=== PATIENT | female | born 1980 | race Hispanic/Latino ===

== ENCOUNTER 2018-03-03 03:34 | Emergency (ER) | payer BC, SELFPAY ==
[2018-03-03 04:19] LABS: Bilirubin Small (Negative); Blood, Urine Moderate (Negative); Clarity TURBID (Clear); Glucose, Urine (Dipstick) >=1000 mg/dL (Negative); Leukocyte Large (Negative); Nitrite Positive (Negative); Protein, Urine (Dipstick) 30 mg/dL (Neg-Trace); Specific Gravity, Urine 1.037 (1.002-1.036)
[2018-03-03 04:22] LABS: Bacteria/HPF None Seen HPF (None Seen); Hyaline Casts/LPF 4-6 HYALINE CAST LPF (0-3 Hyaline); Pathc Cast-AUWi Flag 1.34 (0-2.49)
[2018-03-03 04:30] LABS: Yeast-AUWi Flag 133.8 (0-25.0)
[2018-03-03 04:32] LABS: Pregnancy Test - Urine (BHCG) Negative (Negative); Pregu Control Background? CLEAR/WHITE (CLR/WHITE); Pregu Control Bar Appear? YES (CONTROL BAR); Specific Gravity 1.037 (1.002-1.036)
[2018-03-03 04:35] LABS: #Basophils 0.1 thou/uL (0.0-0.2); #Eosinphils 0.2 thou/uL (0.0-0.7); #Lymphocytes 3.3 thou/uL (1.20-3.40); #Monocytes 0.5 thou/uL (0.11-0.59); #Neutrophils 3.1 thou/uL (1.40-6.50); %Basophils 0.8 % (0.0-1.0); %Eosinophils 3.1 % (0.0-10.0); %Lymphocytes 45.5 % (21.0-51.0); %Monocytes 7.2 % (0.0-10.0); %Neutrophils 43.4 % (42.0-75.0); Mean Corpuscular HGB CONC 33.7 g/dL (32.0-36.0); Mean Corpuscular Volume 86.3 fL (78.0-98.0); Mean Platelet Volume 7.9 fL (7.4-10.4); Platelet Count 299 thou/uL (130-400); RBC Distribution Width 12.2 % (11.5-14.5); Red Blood Cell (RBC) Count 5.15 mill/uL (4.20-5.40); White Blood Cell (WBC) Count 7.2 thou/uL (4.8-10.8)
[2018-03-03 04:40] LABS: ALT (SGPT) 190 U/L (8-55); AST (SGOT) 97 U/L (5-34); Albumin 4.1 g/dL (3.5-5.0); Alkaline Phosphatase 109 U/L (40-150); Anion Gap 15 mmol/L (10-20); BUN (Urea Nitrogen) 11 mg/dL (7.0-18.7); Bilirubin, Total 0.8 mg/dL (0.2-1.2); Calc. Creatinine Clearance 0 mL/min (70-130); Calcium 9.2 mg/dL (7.8-10.44); Carbon Dioxide 20 mmol/L (22-29); Chloride 105 mmol/L (98-107); Estimated GFR-MDRD 67; Globulin 3.8 g/dL (2.4-3.5); Glucose 310 mg/dL (70-105); Potassium 3.6 mmol/L (3.5-5.1); Protein, Total 7.9 g/dL (6.0-8.3); Sodium 136 mmol/L (136-145)
[2018-03-03 04:50] LABS: RBC/HPF GREATER THAN 50-TNTC HPF (0-3); Yeast-All Forms None Seen HPF (None Seen)
[2018-03-03] MEDS ORDERED: cefTRIAXone\\ROCEPHIN 1 GM VIAL ONE (06:08)
[2018-03-03] MEDS ORDERED: Lidocaine 1% PF 5 ML VIAL ONE (06:09)
[2018-03-04 22:37] LABS: Chlamydia by PCR Not Detected (NotDetected); GC by PCR Not Detected (NotDetected)
== END 2018-03-03 07:08 | disposition home or self-care (01) ==
LOC: ERS 03:34
DX: N39.0 Urinary tract infection, site not specified (principal)
CPT/HCPCS: 36415; 80053; 81003; 81015; 81025; 85025; 87480; 87491; 87510; 87591; 87660; 96372; J0696; J2001

== ENCOUNTER 2019-02-23 07:58 | Emergency (ER) | payer SELFPAY ==
[2019-02-23] MEDS ORDERED: Ketorolac Tromethamine 30 MG/ML VIAL ONE (08:35)
== END 2019-02-23 08:50 | disposition home or self-care (01) ==
LOC: ERS 07:58
DX: S39.012A Strain of muscle, fascia and tendon of lower back, initial encounter (principal); X50.9XXA Other and unspecified overexertion or strenuous movements or postures, initial encounter
CPT/HCPCS: 96372; 99283; J1885

== ENCOUNTER 2019-04-15 18:11 | Emergency (ER) | payer SELFPAY ==
[2019-04-15] MEDS ORDERED: Midazolam HCl 2 mg/2 ml Vial ONE (20:52)
[2019-04-15] MEDS ORDERED: Ketorolac Tromethamine 30 MG/ML VIAL ONE (20:52)
[2019-04-15] MEDS ORDERED: Fentanyl 100 MCG/2 ML VIAL ONE ×2 (20:52→21:41)
== END 2019-04-15 22:22 | disposition home or self-care (01) ==
LOC: ERS 18:11
DX: L02.31 Cutaneous abscess of buttock (principal)
CPT/HCPCS: 10061; 96374; 96375; 96376; J1885; J2250; J3010

== ENCOUNTER 2019-04-18 12:32 | Emergency (ER) | payer SELFPAY ==
[2019-04-18] MEDS ORDERED: Bacitracin 1 PK ONE (13:19)
== END 2019-04-18 13:35 | disposition home or self-care (01) ==
LOC: ERS 12:32
DX: Z48.817 Encounter for surgical aftercare following surgery on the skin and subcutaneous tissue (principal)
CPT/HCPCS: 99282

== ENCOUNTER 2019-12-26 13:44 | Emergency (ER) | payer BC, OTHER ==
[2019-12-27 15:38] LABS: SARS-CoV-2 MS2 Positive; SARS-CoV-2 N Gene Negative; SARS-CoV-2 S Gene Negative; SARS-CoV-2 orf1ab Negative
== END 2019-12-26 14:26 | disposition home or self-care (01) ==
LOC: ERS 13:44
DX: Z20.828 Contact with and (suspected) exposure to other viral communicable diseases (principal); E11.9 Type 2 diabetes mellitus without complications
CPT/HCPCS: 87635; 99283; U0003

== ENCOUNTER 2020-01-18 14:16 | Emergency (ER) | payer BC, OTHER ==
[~2020-01-18 14:16] MED LIST: Iopamidol-370 76% 500 ML 1 ML ONE
[2020-01-18 16:41] LABS: #Lymphocytes 1.9 thou/uL (1.20-3.40); #Monocytes 0.5 thou/uL (0.11-0.59); #Neutrophils 7.2 thou/uL (1.40-6.50); %Basophils 0.3 % (0.0-1.0); %Eosinophils 0.2 % (0.0-10.0); %Lymphocytes 19.5 % (21.0-51.0); %Monocytes 4.9 % (0.0-10.0); Hemoglobin 10.8 g/dL (12.0-16.0); Mean Corpuscular HGB CONC 29.5 g/dL (32.0-36.0); Mean Corpuscular Hemoglobin 18.7 pg (27.0-31.0); Mean Corpuscular Volume 63.4 fL (78.0-98.0); Mean Platelet Volume 5.4 fL (7.4-10.4); Platelet Count 399 thou/uL (130-400); RBC Distribution Width 17.6 % (11.5-14.5); White Blood Cell (WBC) Count 9.7 thou/uL (4.8-10.8)
[2020-01-18 16:47] LABS: BHCG - Serum Negative (NEGATIVE); Pregs Control Background? CLEAR/WHITE (CLR/WHITE); Pregs Control Bar Appear? YES (CONTROL BAR)
--- NOTE | 2020-01-18 16:58 | RAD ---
XR Chest 1 View Portable HISTORY: Shortness of breath COMPARISON: None FINDINGS: The heart size is normal. Patchy infiltrate is seen in the right lung base. No pneumothorax or pleural effusions. IMPRESSION: Findings suspicious for right basilar pneumonia.
[2020-01-18 17:01] LABS: ALT (SGPT) 40 U/L (8-55); AST (SGOT) 37 U/L (5-34); Albumin 4.2 g/dL (3.5-5.0); Alkaline Phosphatase 95 U/L (40-110); Anion Gap 14 mmol/L (10-20); BUN (Urea Nitrogen) 9 mg/dL (7.0-18.7); Bilirubin, Total 0.3 mg/dL (0.2-1.2); Calc. Creatinine Clearance 0 mL/min (70-130); Calcium 9.1 mg/dL (7.8-10.44); Carbon Dioxide 22 mmol/L (22-29); Chloride 101 mmol/L (98-107); Estimated GFR-MDRD 75; Globulin 4.3 g/dL (2.4-3.5); Glucose 219 mg/dL (70-105); Lipase 29 U/L (8-78); Potassium 3.9 mmol/L (3.5-5.1); Protein, Total 8.5 g/dL (6.0-8.3); Sodium 133 mmol/L (136-145)
[2020-01-18 17:14] LABS: Reflex for Review?? YES
[2020-01-18 17:44] LABS: Anisocytosis SLIGHT = 6-15 cells (100X) (0-5/hpf); Band 2 % (5-11); Eosinophils 1 % (0-10); Hypochromia MODERATE=16-30 cells (100X) (0-5/hpf); Lymphocytes 21 % (21-51); MDiff Complete? YES; Microcytosis MODERATE=15-30 cells (100X) (0-5/hpf); Monocytes 5 % (0-10); Neutrophil 71 % (42-75); Platelet Morphology Comment Appears Adequate; Polychromasia SLIGHT = 2-3 cells (100X) (0-2/hpf)
[2020-01-18] MEDS ORDERED: cefTRIAXone\\ROCEPHIN 2 GM VIAL ONE (18:30)
[2020-01-18] MEDS ORDERED: Azithromycin 500 MG VIAL ONE (18:30)
[2020-01-18] MEDS ORDERED: Dexamethasone 10 MG/ML VIAL ONE (18:32)
[2020-01-18] MEDS ORDERED: Ketorolac Tromethamine 30 MG/ML VIAL ONE (21:17)
--- NOTE | 2020-01-18 21:27 | CT ---
CT ANGIOGRAM THORAX WITH IV CONTRAST AND 3-D RECONSTRUCTIONS CLINICAL INDICATION: Shortness of breath, pneumonia, d-dimer elevation. Cough. COMPARISON: None FINDINGS: Pulmonary arteries: No filling defects are seen in the pulmonary arteries to suggest a pulmonary embo caden. Aorta: The aorta is normal in caliber without evidence of an aortic dissection. Lungs: Multifocal patchy parenchymal airspace densities are seen with larger area of consolidation at the right lung base. Findings are most suggestive of multifocal pneumonia and possibly atypical pneumonia. Viral pneumonitis is a possibility. Mediastinum: No enlarged mediastinal lymph nodes are present, but there is mild soft tissue prominenc e in each hilar region likely due to reactive lymphadenopathy. Thyroid gland: Normal in appearance where imaged. Osseous structures: No acute process. Chest wall: No abnormality visualized. Upper abdomen: A 1.9 cm gallbladder calculus is seen. The remainder of the visualized upper abdominal structures demonstrate a normal CT appearance for phase of imaging. IMPRESSION: 1. Multifocal parenchymal airspace densities with greater area of consolidation at the right lung bas e. Findings are most suggestive of multifocal pneumonia and possibly atypical pneumonia or viral pneumonitis. Follow-up to resolution is suggested. 2. No CT evidence of a pulmonary embolus. 3. Cholelithiasis.
[2020-01-19 14:59] LABS: SARS-CoV-2 MS2 Positive; SARS-CoV-2 N Gene Positive; SARS-CoV-2 S Gene Positive; SARS-CoV-2 by NAA DETECTED (NotDetected); SARS-CoV-2 orf1ab Positive
== END 2020-01-18 22:25 | disposition home or self-care (01) ==
LOC: ERS 14:16
DX: U07.1 COVID-19 (principal); J12.89 Other viral pneumonia; E11.9 Type 2 diabetes mellitus without complications
CPT/HCPCS: 36415; 71045; 71275; 80053; 83605; 83690; 84484; 84703; 85025; 85060; 85379; 87040; 87635; 93005; 94760; 96365; 96375; J0456; J0696; J1100; J1885; Q9967; U0003

== ENCOUNTER 2020-05-10 14:37 | Outpatient (CLI) | payer BC, MEDICAID | END 2020-05-10 14:38 | disposition home or self-care (01) | LOC: DTY/OP 14:37 | PROVIDERS: ATTEND Family Medicine | DX: E08.9 Diabetes mellitus due to underlying condition without complications (principal) | CPT/HCPCS: 97802 ==

== ENCOUNTER 2020-06-18 07:32 | Outpatient (CLI) | payer BC, MEDICAID ==
--- NOTE | 2020-06-18 08:33 | ULT ---
Right upper quadrant ultrasound: 06/18/2020 COMPARISON: None HISTORY: Elevated ALTs, abnormal liver function tests TECHNIQUE: Multiplanar grayscale sonographic imaging of the right upper quadrant provided. FINDINGS: Partially visualized pancreas appears grossly unremarkable. The freight car builder measures a hypoechoic persistent oval structure measuring approximately 6.2 x 2.5 cm. This could represent bowel but peristalsis is not seen. No focal liver lesion is evident. The hepatic parenchyma appears hypodense, suggesting steatosis. The re is a 1.5 cm shadowing stone within the gallbladder neck. The common bile duct measures 4 mm, within normal limits. No gallbladder wall thickening. The freight car builder reports a negative Goddard's sig n. The right kidney measures 9.5 cm in craniocaudal dimension and demonstrates no stone, hydronephrosis, or mass. IMPRESSION: Cholelithiasis and hepatic steatosis. No evidence for biliary dilatation or acute cholecy stitis. Basalt hypoechoic structure anterior to the pancreas may signify bowel but no peristalsis is seen on this exam. Thus, CT of abdomen is advised to exclude a peripancreatic abnormality CODE T
== END 2020-06-18 07:33 | disposition home or self-care (01) ==
LOC: BICULT 07:32
PROVIDERS: ATTEND Family Medicine
DX: R74.01 Elevation of levels of liver transaminase levels (principal); K80.20 Calculus of gallbladder without cholecystitis without obstruction; K76.0 Fatty (change of) liver, not elsewhere classified
CPT/HCPCS: 76705

== ENCOUNTER 2020-07-25 07:26 | Outpatient (CLI) | payer BC, MEDICAID ==
--- NOTE | 2020-07-25 08:19 | CT ---
CT ABDOMEN AND PELVIS WITH ORAL AND IV CONTRAST HISTORY: Abnormal findings on ultrasound of 06/18/2020. Left-sided abdominal pain and elevated ALT. COMPARISON: None FINDINGS: The lung bases are clear. Calcified gallstone is present. The liver, spleen, pancreas, adrenal glands and kidneys are normal. No peripancreatic mass or fluid collection is seen. No free air, free fluid or lymphadenopathy seen in the abdomen or pelvis. Uterus and ovaries are present. An IUD is see n. The small bowel loops are not abnormally dilated. A normal-appearing appendix is present. The aorta is of normal caliber. No acute osseous abnormalities are seen. IMPRESSION: 1. Cholelithiasis. 2. No evidence of peripancreatic mass. 3. IUD.
[2020-07-25] MEDS ORDERED: Iopamidol-370 76% 500 ML 1 ML ONE (10:24)
== END 2020-07-25 07:27 | disposition home or self-care (01) ==
LOC: BICCT 07:26
PROVIDERS: ATTEND Family Medicine
DX: R93.89 Abnormal findings on diagnostic imaging of other specified body structures (principal); K80.20 Calculus of gallbladder without cholecystitis without obstruction; Z97.5 Presence of (intrauterine) contraceptive device
CPT/HCPCS: 74177; Q9967

== ENCOUNTER 2021-09-02 18:00 | Emergency (ER) | payer BC, MEDICAID ==
[2021-09-02] MEDS ORDERED: Ketorolac Tromethamine 30 MG/ML VIAL ONE (19:19)
[2021-09-02 19:49] LABS: Bilirubin Negative (Negative); Blood, Urine Negative (Negative); Clarity Clear (Clear); Glucose, Urine (Dipstick) Greater than 1000 mg/dL (Negative); Ketone, Urine Negative (Negative); Leukocyte Negative Leu/uL (Negative); Nitrite Negative (Negative); Protein, Urine (Dipstick) Negative (Neg-Trace); Urobilinogen Normal mg/dL (Less than 2); pH, Urine 6.5 (5.0-9.0)
[2021-09-02 19:52] LABS: Pregnancy Test - Urine (BHCG) Negative (Negative); Pregu Control Background? CLEAR/WHITE (CLR/WHITE); Pregu Control Bar Appear? YES (CONTROL BAR)
[2021-09-02] MEDS ORDERED: Diazepam 5 MG TAB ONE (20:04)
== END 2021-09-02 20:46 | disposition home or self-care (01) ==
LOC: ERS 18:00
DX: M54.50 Low back pain, unspecified (principal); G89.29 Other chronic pain; E11.9 Type 2 diabetes mellitus without complications
CPT/HCPCS: 81003; 81025; 96372; 99283; J1885